=== PATIENT | female | born 1950 | race Caucasian/White ===

== ENCOUNTER 2016-08-09 11:54 | Emergency (ER) | payer MEDICARE, MEDICAID ==
[2016-08-09 12:13] VITALS: TEMP 98
--- NOTE | 2016-08-09 12:35 | ED PDOC ---
HPI: Hypertension/Hypotension Time Seen by Provider: 08/09/16 12:05 Chief Complaint (Nursing): High Blood Pressure Chief Complaint (Provider): HTN History Per: Patient History/Exam Limitations: no limitations Onset/Duration Of Symptoms: Mins Current Symptoms Are (Timing): Better Associated Symptoms: Dizziness Severity: Moderate Additional History Per: Patient Additional Complaint(s): The pt is a 66yo female, PMHx of HTN, presents to the ED with her daughter for evaluation of elevated blood pressure this morning. Pt reports she was doing a routine check of her blood pressure and saw that it was 163/85 causing her concern. Pt reports feeling dizzy and nervous due to her elevated bp. Additionally reports she recently had her Valsartan dose doubled but she had continued to take the old medication because she felt the new one was too high. Pt reports this morning she took Valsartan 320-25 mg before coming to the ED. She denies any chest pain, headache, nausea or vomiting. Pt offers no additional medical complaints. Past Medical History Reviewed: Historical Data, Nursing Documentation, Vital Signs Vital Signs: Last Vital Signs Temp 98 F 08/09/16 12:10 Pulse 67 08/09/16 12:10 Resp 18 08/09/16 12:10 BP 145/78 08/09/16 12:10 Pulse Ox 99 08/09/16 12:10 - Medical History PMH: HTN Denies: Chronic Kidney Disease - Surgical History Surgical History: No Surg Hx - Family History Family History: States: Unknown Family Hx - Living Arrangements Living Arrangements: With Family - Home Medications Home Medications: Ambulatory Orders Medication Instructions Recorded Enalapril Maleate [Vasotec] 20 mg PO DAILY 08/24/15 Hydrochlorothiazide [HCTZ] 25 mg PO DAILY 08/24/15 - Allergies Allergies/Adverse Reactions: Allergies Allergy/AdvReac Type Severity Reaction Status Date / Time No Known Allergies Allergy Verified 08/09/16 12:09 Review of Systems ROS Statement: Except As Marked, All Systems Reviewed And Found Negative Cardiovascular: Positive for: Other (HTN). Negative for: Chest Pain Gastrointestinal: Negative for: Nausea, Vomiting Neurological: Positive for: Dizziness. Negative for: Headache Physical Exam - Reviewed Nursing Documentation Reviewed: Yes Vital Signs Reviewed: Yes - Physical Exam Appears: Positive for: Well, Non-toxic, No Acute Distress Head Exam: Positive for: ATRAUMATIC, NORMAL INSPECTION, NORMOCEPHALIC Skin: Positive for: Normal Color, Warm, Dry Eye Exam: Positive for: Normal appearance Neck: Positive for: Normal, Supple Cardiovascular/Chest: Positive for: Regular Rate, Rhythm Respiratory: Positive for: Normal Breath Sounds. Negative for: Respiratory Distress Pulses-Dorsalis Pedis (L): 2+ Pulses-Dorsalis Pedis (R): 2+ Pulses-Radial (L): 2+ Pulses-Radial (R): 2+ Gastrointestinal/Abdominal: Positive for: Normal Exam, Soft. Negative for: Tenderness Extremity: Negative for: Pedal Edema Neurologic/Psych: Positive for: Alert, Oriented - Laboratory Results Result Diagrams: 08/09/16 13:16 08/09/16 13:16 - ECG ECG: Positive for: Interpreted By Me, Viewed By Me ECG Rhythm: Positive for: Sinus Rhythm Interpretation Of ECG: Normal axis, no acute ST/T changes. Rate 57 Rate: 57 O2 Sat by Pulse Oximetry: 99 (RA) Pulse Ox Interpretation: Normal Medical Decision Making Medical Decision Making: Time: 1215 Impression: Hypertension Plan: * Repeat BP in ER -- 137/84 * BMP * CBC * EKG * Reassess Scribe Attestation: Documented by Fozia Alves acting as a scribe for Taylor Gupta MD. Provider Attestation: All medical record entries made by the Scribe were at my direction and personally dictated by me. I have reviewed the chart and agree that the record accurately reflects my personal performance of the history, physical exam, medical decision making, and the department course for this patient. I have also personally directed, reviewed, and agree with the discharge instructions and disposition. Disposition - Clinical Impression Clinical Impression: Hypertension - Patient ED Disposition Is Patient to be Admitted: No Doctor Will See Patient In The: Office Counseled Patient/Family Regarding: Diagnosis, Need For Followup - Disposition Referrals: Gerardo Ceballos MD [Non-Staff] - Rosalie Amezcua MD [Family Provider] - Disposition: Routine/Home Disposition Time: 14:13 Condition: STABLE Instructions: Hypertension (ED) Forms: [employer] (Occitan) Print Language: TURKISH - POA Present On Arrival: None
[2016-08-09 13:20] LABS: BASO # 0.1 K/uL (0.0-0.2); BASO % 1.2 % (0.0-2.0); HEMOGLOBIN 13.1 g/dL (12.0-16.0); LYMPH # 1.5 K/uL (1.0-4.3); LYMPH % 32.1 % (20.0-40.0); MEAN CELL VOLUME 90.8 fl (81.0-99.0); MEAN CORPUSCULAR HEMOGLOBIN 30.7 pg (27.0-31.0); MEAN CORPUSCULAR HGB CONC 33.8 g/dL (33.0-37.0); MEAN PLATELET VOLUME 9.5 fl (7.2-11.7); MONO # 0.4 K/uL (0.0-0.8); NEUT # 2.7 K/uL (1.8-7.0); NEUT % 57.7 % (50.0-75.0); NRBC % 0.1 % (0.0-0.0); RBC 4.25 Mil/uL (3.80-5.20); RED CELL DISTRIBUTION WIDTH 14.1 % (11.5-14.5); WHITE BLOOD COUNT 4.7 K/uL (4.8-10.8)
[2016-08-09 13:23] VITALS: BP 128/73; RESP 14
[2016-08-09 13:34] LABS: BLOOD UREA NITROGEN 14 mg/dl (7-17); CALCIUM 9.4 mg/dL (8.4-10.2); GFR AFRICAN-AMERICAN > 60; GFR NON-AFRICAN AMERICAN 56
[2016-08-09 14:14] VITALS: O2SAT 99
[2016-08-09 14:36] VITALS: PULSE 61
--- NOTE | 2016-08-11 07:17 | CARD ---
APPROVED REPORT EKG Measurement Heart [id number] <Conclusion> Sinus bradycardia Low voltage QRS Borderline ECG
== END 2016-08-09 14:30 | disposition home or self-care (01) ==
LOC: H.ER 11:54
DX: I10 Essential (primary) hypertension (principal)

== ENCOUNTER 2018-06-26 22:09 | Emergency (ER) | payer MEDICARE, MEDICAID ==
[2018-06-26 22:16] VITALS: TEMP 98.3
[2018-06-26 22:43] VITALS: O2SAT 99
[2018-06-26 23:38] LABS: BASO # 0.1 K/uL (0.0-0.2); BASO % 1.1 % (0.0-2.0); EOS # 0.1 K/uL (0.0-0.7); EOS % 2.2 % (0.0-4.0); HEMOGLOBIN 12.4 g/dL (12.0-16.0); LYMPH # 2.7 K/uL (1.0-4.3); LYMPH % 43.2 % (20.0-40.0); MEAN CELL VOLUME 93.9 fl (81.0-99.0); MEAN CORPUSCULAR HEMOGLOBIN 31.1 pg (27.0-31.0); MEAN CORPUSCULAR HGB CONC 33.2 g/dL (33.0-37.0); MONO # 0.6 K/uL (0.0-0.8); MONO % 9.3 % (0.0-10.0); NEUT # 2.8 K/uL (1.8-7.0); NEUT % 44.2 % (50.0-75.0); NRBC % 0.1 % (0.0-0.0); RBC 3.97 Mil/uL (3.80-5.20); RED CELL DISTRIBUTION WIDTH 14.5 % (11.5-14.5); WHITE BLOOD COUNT 6.3 K/uL (4.8-10.8)
[2018-06-27 00:15] LABS: BLOOD UREA NITROGEN 19 mg/dl (7-17); CALCIUM 9.6 mg/dL (8.4-10.2); GFR NON-AFRICAN AMERICAN 50
--- NOTE | 2018-06-27 00:16 | ED PDOC ---
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 Patient states she was cleaning dishes when she experienced sudden onset chest pain and left hand numbness for a short period of time. The chest pain was non-radiating, non-exertional and not associated with shortness of breath. Patient took her blood pressure at home and it was 165 systolic. She took an extra dose of her blood pressure medication prior to arrival and is currently asymptomatic. PMD: Dr. Berto Amezcua Past Medical History Reviewed: Historical Data, Nursing Documentation, Vital Signs Vital Signs: Last Vital Signs Temp 98.3 F 06/26/18 22:12 Pulse 64 06/26/18 23:25 Resp 11 L 06/26/18 22:41 BP 142/91 H 06/26/18 22:41 Pulse Ox 99 06/26/18 22:41 Primary Care Physician: Samantha Birmingham MD - Medical History PMH: HTN Denies: Chronic Kidney Disease - Surgical History Surgical History: No Surg Hx - Family History Family History: States: Unknown Family Hx - Home Medications Home Medications: Ambulatory Orders Medication Instructions Recorded Enalapril Maleate [Vasotec] 20 mg PO DAILY 08/24/15 Hydrochlorothiazide [HCTZ] 25 mg PO DAILY 08/24/15 - Allergies Allergies/Adverse Reactions: Allergies Allergy/AdvReac Type Severity Reaction Status Date / Time No Known Allergies Allergy Verified 08/09/16 12:09 Review of Systems ROS Statement: Except As Marked, All Systems Reviewed And Found Negative Cardiovascular: Positive for: Chest Pain Musculoskeletal: Positive for: Other (left hand numbness) Physical Exam - Reviewed Nursing Documentation Reviewed: Yes Vital Signs Reviewed: Yes - Physical Exam Appears: Positive for: Non-toxic, No Acute Distress Head Exam: Positive for: ATRAUMATIC, NORMAL INSPECTION, NORMOCEPHALIC Skin: Positive for: Normal Color, Warm, Dry Eye Exam: Positive for: EOMI, Normal appearance, PERRL Neck: Positive for: Normal, Painless ROM, Supple Cardiovascular/Chest: Positive for: Regular Rate, Rhythm. Negative for: Murmur Respiratory: Positive for: Normal Breath Sounds. Negative for: Wheezing, Respiratory Distress Gastrointestinal/Abdominal: Positive for: Normal Exam, Soft. Negative for: Tenderness Back: Positive for: Normal Inspection. Negative for: L CVA Tenderness, R CVA Tenderness Extremity: Positive for: Normal ROM (x 4). Negative for: Deformity Neurological/Psych: Positive for: Awake, Alert, Normal Tone, Symmetric/Intact Strength (5/5 strength), Oriented (x 3), Gait (steady), Cerebellar Tests ( negative), returned case inspector II-XII (intact). Negative for: Motor/Sensory Deficits, Facial Droop - Laboratory Results Result Diagrams: 06/26/18 23:23 06/26/18 23:23 - ECG O2 Sat by Pulse Oximetry: 99 (RA) Pulse Ox Interpretation: Normal Medical Decision Making Medical Decision Makin:10 A&P: atypical sounding chest pain and left hand numbness Not concerned for acute CVA or TIA Given patient's history, will obtain cardiac enzymes and continue to observe on court recording monitor. Orders: --BMP --CBC --CXR --EKG --Glucose POC --Troponin 04:22 Patient remained asymptomatic during her stay in the ED. Labs within normal limits. Patient is stable for discharge. Return precautions discussed. ---- Scribe Attestation: Documented by Deisy Colunga, acting as a scribe Lyndsey Page MD Provider Scribe Attestation: All medical record entries made by the Scribe were at my direction and personally dictated by me. I have reviewed the chart and agree that the record accurately reflects my personal performance of the history, physical exam, medical decision making, and the department course for this patient. I have also personally directed, reviewed, and agree with the discharge instructions and disposition. Disposition - Clinical Impression Clinical Impression: Hypertension, Atypical chest pain - Patient ED Disposition Is Patient to be Admitted: No - Disposition Referrals: Samantha Birmingham [Primary Care Provider] - Disposition: Routine/Home Disposition Time: 04:22 Condition: GOOD Instructions: High Blood Pressure in Adults, Chest Pain That Is Not Caused by the Heart (DC) Forms: [email or web address] (Barbadian) Print Language: EGYPTIAN
[2018-06-27 04:49] VITALS: BP 117/73; PULSE 61; RESP 15
--- NOTE | 2018-06-27 08:17 | CARD ---
APPROVED REPORT Date of service: 06/26/2018 EKG Measurement Heart [id number] <Conclusion> Normal sinus rhythm Low voltage QRS Borderline ECG
--- NOTE | 2018-06-27 14:17 | RAD ---
Date of service: 06/26/2018 HISTORY: cp COMPARISON: No prior. TECHNIQUE: Chest PA and lateral views FINDINGS: LUNGS: No active pulmonary disease. PLEURA: No significant pleural effusion identified. No pneumothorax apparent. CARDIOVASCULAR: No aortic atherosclerotic calcification present. Mild aortic tortuosity Normal cardiac size. No pulmonary vascular congestion. OSSEOUS STRUCTURES: No significant abnormalities. VISUALIZED UPPER ABDOMEN: Normal. OTHER FINDINGS: None. IMPRESSION: No active disease.
== END 2018-06-27 04:15 | disposition home or self-care (01) ==
LOC: H.ER 22:09
DX: I10 Essential (primary) hypertension (principal); R07.89 Other chest pain